=== PATIENT | male | born 1975 | race Caucasian/White ===

== ENCOUNTER 2023-07-22 13:34 | Outpatient (CLI) | payer BC, SELFPAY ==
--- NOTE | ~2023-07-22 | PE_ITS ---
EXAMINATION: PET_PETPSMAST_PT DATE: 07/22/2023 15:56 INDICATION: Prostate cancer with elevated PSA TECHNIQUE: 8.284 mCi of pipflufolastat F-18 (18-F-DCFPyL) was administered i.v. Low dose computed to mography (CT) images were acquired from the base of the brain to the base of the brain to the proxima l thighs for attenuation correction and anatomic localization. Positron emission tomography (PET) yoni ges were acquired in the same distribution beginning 88 minutes after injection. Images including fus ed PET/CT images were reconstructed in axial, coronal, and sagittal planes. Automated exposure contro l technique was employed. The dose-length product was 785.65mGy-cm. COMPARISON: None FINDINGS: Head/neck: Typical pattern of symmetric physiologic increased activity in the lacrimal, parotid and submandibula r glands as well as along the mucosa of the nasal and oral cavities, the fam-, naso- and hypopharynx, the glottis and esophagus. There is also a typical pattern of symmetric tiny foci of mild likely phy siologic neural ganglia uptake at a few bilateral cervical neural foramina. No pathologically enlarge d cervical lymphadenopathy or suspicious foci of increased uptake in the visualized head or neck. Chest: No suspicious pulmonary nodules, pneumonia, pulmonary edema or pleural effusion. Heart size is normal . No pericardial effusion. Ectatic ascending thoracic aorta measuring up to 4.1 cm in maximal diamete r. Calcified right hilar and mediastinal lymph nodes consistent with old granulomatous disease. Mildl y enlarged inferior paraesophageal lymph node measuring up to 1.3 cm in maximal short axis diameter b ut without increased PSMA uptake. No pathologically enlarged other pathologically enlarged or PSMA av id thoracic lymphadenopathy. Abdomen/pelvis/proximal thighs: Physiologic renal accumulation and excretion of activity in the kidneys, bladder and along portions o f ureters. Normal degree and slightly heterogenous pattern of increased uptake throughout the liver a nd spleen without radiologic correlate or dominant PSMA avid lesion. The gallbladder, pancreas and bi lateral adrenal glands are normal. Moderate uptake scattered throughout the bowels with typical duode nal and proximal jejunal predominance and without radiologic correlate, also likely physiologic. There is diffuse increased PSMA activity throughout the prostate with maximal SUV of 60 consistent wi th primary prostate cancer. There are few PSMA avid retroperitoneal lymph nodes situated between the between the common iliac vessels and in the presacral space. The largest anterior to S1 measures 1.7 x 1.2 cm with maximal SUV of 58.6 and a second anterior to L5-S1 measuring 1 x 1 cm with maximal SUV of 20.7. There are also bilateral external iliac chain lymph nodes the largest on the right measuring 2.1 x 2.0 cm with maximal SUV of 116 and measuring 1.4 x 1.7 cm on the left common iliac chain with maximal SUV of 12.9. Finally there are pair of mildly prominent right posterior perirectal lymph node s measuring 7 mm and 9 mm in maximal short axis diameters with maximal SUV values of 38.9 and 42 resp ectively. Small focus of increased uptake without radiologic correlate along the anterior left hemisc rotum most likely related to skin contamination. Musculoskeletal: Thoracic dextroscoliosis. No suspicious lytic, blastic or PSMA avid bone lesions. IMPRESSION: 1. Diffuse increased PSMA uptake throughout the prostate consistent with primary prostate cancer. 2. Multiple enlarged and PSMA avid lymph nodes in the pelvis as detailed above consistent with metast atic disease. No evident osseous metastatic disease. 3. Mildly enlarged distal paraesophageal lymph node without PSMA activity to suggest metastatic prost ate cancer, most likely reactive although differential would include lymphoma or other non prostatic metastatic disease in the appropriate clinical setting. 4.
== END 2023-07-22 13:35 | disposition home or self-care (01) ==
PROVIDERS: PCP Family Medicine; Visit Provider Urology
DX: C61 Malignant neoplasm of prostate (principal); R97.20 Elevated prostate specific antigen [PSA]
CPT/HCPCS: 78815; A9595